=== PATIENT | male | born 1990 | race American Indian/Alaskan Native ===

== ENCOUNTER 2016-11-15 23:02 | Emergency (ER) | payer SELFPAY ==
[2016-11-15 23:44] VITALS: BP 119/80
== END 2016-11-16 07:08 | disposition left against medical advice (07) ==
LOC: ED 23:02
DX: R21 Rash and other nonspecific skin eruption (principal); Z53.21 Procedure and treatment not carried out due to patient leaving prior to being seen by health care provider

== ENCOUNTER 2018-05-17 22:34 | Emergency (ER) | payer OTHER ==
[2018-05-17 22:48] VITALS: BP 118/75
--- NOTE | 2018-05-18 01:15 | Emergency Department Report ---
- General Chief Complaint: Fever Stated Complaint: FEVER Time Seen by Provider: 05/18/18 00:49 Source: patient Mode of arrival: Ambulatory Limitations: No Limitations - History of Present Illness Initial Comments: Pt is a 27 yo male who presents to the ED with c/o a cough with mucus production that began yesterday. He has associated subjective fever and congestion. He denies any sore throat or ear ache. He is a current every day smoker. He denies any PMHx. He has not taken anything for his sx. - Related Data Previous Rx's Medication Instructions Recorded Last Taken Type Ibuprofen [Motrin 600 MG tab] 600 mg PO Q8H #15 tablet 02/16/18 Unknown Rx ALBUTEROL Inhaler (OR & NICU) 2 puff IH QID PRN #200 inhalation 05/18/18 Unknown Rx [Proair] Azithromycin [Zithromax Z-HUGH] 250 mg PO DAILY 5 Days #6 tablet 05/18/18 Unknown Rx Benzonatate [Tessalon Perles] 100 mg PO Q8HR PRN #20 capsule 05/18/18 Unknown Rx Prednisone [predniSONE 10 mg 10 mg PO .TAPER 6 Days #1 tab.ds.pk 05/18/18 Unknown Rx (6-Day Pack, 21 Tabs)] guaiFENesin [Mucinex] 600 mg PO BID #14 tab.er.12h 05/18/18 Unknown Rx Allergies Allergy/AdvReac Type Severity Reaction Status Date / Time No Known Allergies Allergy Verified 11/15/16 23:40 ED Review of Systems ROS: Stated complaint: FEVER Other details as noted in HPI Comment: All other systems reviewed and negative ED Past Medical Hx - Past Medical History Previous Medical History?: No - Surgical History Past Surgical History?: No - Social History Smoking Status: Never Smoker Substance Use Type: Alcohol - Medications Home Medications: Home Medications Medication Instructions Recorded Confirmed Last Taken Type Ibuprofen [Motrin 600 MG tab] 600 mg PO Q8H #15 tablet 02/16/18 Unknown Rx ALBUTEROL Inhaler (OR & NICU) 2 puff IH QID PRN #200 inhalation 05/18/18 Unknown Rx [Proair] Azithromycin [Zithromax Z-HUGH] 250 mg PO DAILY 5 Days #6 tablet 05/18/18 Unknown Rx Benzonatate [Tessalon Perles] 100 mg PO Q8HR PRN #20 capsule 05/18/18 Unknown Rx Prednisone [predniSONE 10 mg 10 mg PO .TAPER 6 Days #1 tab.ds.pk 05/18/18 Unknown Rx (6-Day Pack, 21 Tabs)] guaiFENesin [Mucinex] 600 mg PO BID #14 tab.er.12h 05/18/18 Unknown Rx ED Physical Exam - General Limitations: No Limitations General appearance: alert, in no apparent distress - Head Head exam: Present: atraumatic, normocephalic - Eye Eye exam: Present: normal appearance - ENT ENT exam: Present: normal orophraynx, mucous membranes moist - Respiratory Respiratory exam: Present: rales (bilateral bases). Absent: respiratory dis tress, wheezes, rhonchi, stridor, chest wall tenderness, accessory muscle use, decreased breath sounds, prolonged expiratory - Cardiovascular Cardiovascular Exam: Present: regular rate, normal rhythm, normal heart sounds. Absent: systolic murmur, rubs, gallop - Neurological Exam Neurological exam: Present: alert, oriented X3 - Psychiatric Psychiatric exam: Present: normal affect, normal mood - Skin Skin exam: Present: warm, dry, intact ED Course Vital Signs 05/17/18 05/17/18 22:39 22:43 Temperature 97.6 F 97.6 F Pulse Rate 77 75 Respiratory 18 18 Rate Blood Pressure 118/75 118/75 O2 Sat by Pulse 100 100 Oximetry ED Medical Decision Making - Radiology Data Radiology results: report reviewed HISTORY: productive cough COMPARISONS: None. FINDINGS: Heart: Normal. Mediastinum/Vessels: Normal. Lungs/Pleural space: Normal. Bony thorax: No acute osseous abnormality. IMPRESSION: Normal examination. This document is electronically signed by Roxie Ramsey DO., May 18 2018 01:37:10 AM ET - Medical Decision Making Pt is a 27 yo male who presents to the ED with c/o a cough with mucus production that began yesterday. He has associated subjective fever and congestion. He denies any sore throat or ear ache. He is a current every day smoker. He denies any PMHx. He has not taken anything for his sx. VSS. CXR with no acute process. discussed radiology results with patient. Will tx pt for acute bronchitis. advised to take all medication as prescribed. Discussed smoking cessation. Advised to follow up with PCP in the next 2-3 days. Return to the emergency room for any new or worsening symptoms. Critical care attestation.: If time is entered above; I have spent that time in minutes in the direct care of this critically ill patient, excluding procedure time. ED Disposition Clinical Impression: Smoker Acute bronchitis Qualifiers: Bronchitis organism: unspecified organism Qualified Code(s): J20.9 - Acute bronchitis, unspecified Disposition: DC-01 TO HOME OR SELFCARE Is pt being admited?: No Does the pt Need Aspirin: No Condition: Stable Instructions: How to Stop Smoking (ED), Acute Bronchitis (ED) Additional Instructions: Follow up with a primary care doctor in the next 2-3 days. Take all medication as prescribed. Return to the emergency room for any new or worsening symptoms. Prescriptions: guaiFENesin [Mucinex] 600 mg PO BID #14 tab.er.12h Prednisone [predniSONE 10 mg (6-Day Pack, 21 Tabs)] 10 mg PO .TAPER 6 Days #1 tab.ds.pk ALBUTEROL Inhaler (OR & NICU) [Proair] 2 puff IH QID PRN #200 inhalation PRN Reason: Shortness Of Breath Benzonatate [Tessalon Perles] 100 mg PO Q8HR PRN #20 capsule PRN Reason: Cough Azithromycin [Zithromax Z-HUGH] 250 mg PO DAILY 5 Days #6 tablet Referrals: LAURIE ROCHA MD [Primary Care Provider] - 2-3 Days Forms: Work/School Release Form(ED) Time of Disposition: 01:54 Print Language: FRISIAN
--- NOTE | 2018-05-18 01:39 | XRay Report ---
PROCEDURE: XR CHEST ROUTINE 2V TECHNIQUE: PA and lateral chest radiographs were obtained. HISTORY: productive cough COMPARISONS: None. FINDINGS: Heart: Normal. Mediastinum/Vessels: Normal. Lungs/Pleural space: Normal. Bony thorax: No acute osseous abnormality. IMPRESSION: Normal examination. This document is electronically signed by Roxie Ramsey DO., May 18 2018 01:37:10 AM ET
== END 2018-05-18 02:10 | disposition home or self-care (01) ==
LOC: ED 22:34
DX: J20.9 Acute bronchitis, unspecified (principal); F17.200 Nicotine dependence, unspecified, uncomplicated
CPT/HCPCS: 71046; 99283